=== PATIENT | female | born 1990 | race Caucasian/White ===

== ENCOUNTER 2022-07-21 14:15 | Outpatient (CLI) | payer OTHER, SELFPAY ==
[2022-07-21 16:50] LABS: Hepatitis B Surface Antigen* Negative (Negative)
[2022-07-21 17:44] LABS: HIV 1/2/P24 Combo Screen* Negative (Negative); Hepatitis C Virus Antibody* Negative (Negative)
[2022-07-21 19:23] LABS: Chlamydia DNA Amplified* NOT DETECTED (No Detected); GC DNA Amplified* NOT DETECTED (No Detected)
[2022-07-23 16:10] LABS: Rapid Plasma Reagin (RPR) Non Reactive (Non Reactive)
[2022-07-23 20:56] LABS: Varicella-Zoster Virus Ab, IgG 75.7 IV
[2022-07-23 20:59] LABS: Rubella Antibody IgG 24.9 IU/mL
== END 2022-07-21 14:16 | disposition home or self-care (01) ==
PROVIDERS: PCP Physician Assistant; Visit Provider Physician Assistant
DX: Z34.91 Encounter for supervision of normal pregnancy, unspecified, first trimester (principal); Z3A.10 10 weeks gestation of pregnancy
CPT/HCPCS: 76817; 86592; 86703; 86762; 86787; 86803; 86850; 86900; 86901; 87086; 87340; 87491; 87591

== ENCOUNTER 2022-08-15 09:25 | Emergency (ER) | payer OTHER, SELFPAY ==
[2022-08-15 09:41] VITALS: BP 103/72; PULSE 98; RESP 16; TEMP 36.9; O2SAT 98; BMI 25.7
--- NOTE | 2022-08-15 10:35 | ED.NURSE ---
dr chawla had done a poc u/s had large amt of urine in bladder. #16 fr ramirez was inserted and had egress of 1000 ml of straw colored urine. had immediate relief.
--- NOTE | 2022-08-15 10:43 | ED_ITS ---
HPI - Female Genitourinary General Date Seen: 08/15/22 Chief complaint: Urogenital Problems, Female Stated complaint: 14 weeks can't urinate Time Seen by Provider: 08/15/22 10:37 Source: patient Mode of arrival: ambulatory Limitations: no limitations History of Present Illness HPI Narrative: Patient is a 32-year-old at 14 weeks gestation, presents here with the acute inability to urinate, she said she had this with her last , and had to have a catheter placed for 5 days, leading up to this she had no problems with peeing, denies any dysuria frequency abdominal pain fevers chills or sweats, she did not take any cold medications or any other new medications that may have caused this other than 1 dose of Tylenol. has otherwise been uncomplicated, she has had ultrasound in this . No history of a vaginal bleeding, Related Data Home Medications Medication Instructions Recorded Confirmed calcium carbonate 500 mg calcium 500 mg PO BID 07/21/22 07/21/22 (1,250 mg) chewable tablet (Calcium 500) cholecalciferol (vitamin D3) 50 50 mcg PO BID 07/21/22 07/21/22 mcg (2,000 unit) capsule prenat.vits,erin,nie-pxre-iuznb 1 tab PO QDAY 07/21/22 07/21/22 Allergies Allergy/AdvReac Type Severity Reaction Status Date / Time No Known Allergies Allergy Unknown Unverified 07/21/22 13:32 Review of Systems Status of ROS: Reports: 6 or more systems reviewed and unremarkable except as noted in History and below PFSH PFS Medical History Normal spontaneous vaginal delivery Retention of urine Surgical History History of ear surgery Social History Narrative: Rqtd-cs-[id number] mom. Single. Nonsmoker. Smoking Status: Former smoker Do you use any of these nicotine containing products: None Second hand tobacco smoke exposure: No How often do you have a drink containing alcohol: never How often do you have six or more drinks on one occasion: Never AUDIT-C Alcohol total score: 0 Non-prescribed substance use: denies use Little interest or pleasure in doing things: not at all Feeling down, depressed, or hopeless: not at all service: No Exam Narrative: Exam Narrative: Patient is seen in room 4 she is in no apparent distress, pleasant gout, she appears to have a full bladder on palpation of her abdomen, almost up to the umbilicus, with some discomfort but no real pain. Ultrasound is used which shows a large amount of urine probably greater than 500 mL, Rodriguez is noted within her uterus. Const: Vital Signs, click to edit/add: Vital Signs - 24 hr 08/15/22 09:41 Temperature 98.4 F Pulse Rate [Pulse Oximeter] 98 Respiratory Rate 16 Blood Pressure [Ri ght Upper Arm] 103/72 Pulse Oximetry 98 Oxygen Delivery Me thod Room Air Course Vital Signs Vital signs: Initial Vital Signs Temperature 98.4 F 08/15/22 09:41 Temperature Source Axillary 08/15/22 09:41 Pulse Rate 98 08/15/22 09:41 Pulse Rhythm 08/15/22 09:41 Respiratory Rate 16 08/15/22 09:41 Blood Pressure 103/72 08/15/22 09:41 Blood Pressure Mean 82 08/15/22 09:41 Blood Pressure Position Sitting 08/15/22 09:41 Pulse Oximetry 98 08/15/22 09:41 Oxygen Delivery Method 08/15/22 09:41 Vital Signs Temperature 98.4 F 08/15/22 09:41 Pulse Rate 98 08/15/22 09:41 Respiratory Rate 16 08/15/22 09:41 Blood Pressure 103/72 08/15/22 09:41 Pulse Oximetry 98 08/15/22 09:41 Oxygen Delivery Method 08/15/22 09:41 Temperature 98.4 F 08/15/22 09:41 Pulse Rate 98 08/15/22 09:41 Respiratory Rate 16 08/15/22 09:41 Blood Pressure 103/72 08/15/22 09:41 Pulse Oximetry 98 08/15/22 09:41 Oxygen Delivery Method 08/15/22 09:41 MDM - Female Genitourinary MDM Narrative Medical decision making narrative: Multiple causes of her urinary retention are thought about including , a UTI, taking cold medications. Bottom line is she needs a catheter at this point, we will also check a UA. Medical Records Attestation: I reviewed the patient's medical records. Lab Data Attestation: I reviewed the patient's lab results. Labs: Lab Results 08/15/22 Range/Units 11:05 Urine Color Light yellow (Yellow) Urine Appearance Slightly Cloudy A (Clear) Urine pH 6.0 (5.0-8.5) Ur Specific [place] 1.020 (1.000-1.030) Urine Protein Negative (Negative) Urine Glucose (UA) Negative (Negative) Urine Ketones 4+ A (Negative) Urine Blood Trace-intact A (Negative) Urine Nitrite Negative (Negative) Urine Bilirubin Negative (Negative) Urine Urobilinogen 0.2 (0.2-1.0) Ur Leukocyte Esterase Negative (Negative) Urine RBC 2-5 A (0-2) Urine WBC 0-2 (0-5) Ur Squamous Epith Cells Few (None-Few) Urine Bacteria None (None) Discharge Plan Discharge Clinical Impression: 14 weeks gestation of , Acute urinary retention Patient Disposition: Home, Self-Care Condition: Improved Instructions: Desai Catheter Placement and Care (ED), Acute Urinary Retention in Women (ED), at 11 to 14 Weeks (ED), How to Change a Catheter Drainage Bag (DC) Additional Instructions: Home rest follow-up mid next week with primary care for catheter removal, return here if any issues around this. Continue to drink lots of fluids (you had a lot of ketones which makes me think you are not), fevers chills sweats or vaginal bleeding should prompt a return emergency room visit. Prescriptions: No Action prenat.vits,erin,uus-udir-ptlwy Tablet 1 tab PO QDAY calcium carbonate [Calcium 500] 500 mg calcium (1,250 mg) tablet,chewable 500 mg PO BID cholecalciferol (vitamin D3) 50 mcg (2,000 unit) capsule 50 mcg PO BID Follow Up/Referrals: Bessie Reyes PA-C [Physician [employer] Engineer] - Stand Alone Forms: [employer] [facility] Info Instructions
[2022-08-15 11:14] LABS: Appearance Urine Slightly Cloudy (Clear); Bilirubin Urine Negative (Negative); Blood Urine Trace-intact (Negative); Color Urine Light yellow (Yellow); Glucose Urine Negative (Negative); Ketones Urine 4+ (Negative); Leukocyte Esterase Urine Negative (Negative); Nitrite Urine Negative (Negative); Protein Urine Negative (Negative); Urobilinogen Urine 0.2 (0.2-1.0)
[2022-08-15 11:23] LABS: Squamous Epithelial Cell Urine Few (None-Few); WBC Urine 0-2 (0-5)
[2022-08-15 11:47] VITALS: BP 95/57; PULSE 64; RESP 18; O2SAT 97
--- NOTE | 2022-08-15 12:00 | ED.NURSE ---
was able to use leg bad in the past. did give her the larger overnight bag. has had ramirez catheter in the past and was instructed on the use and emptying of the drainage bag. has no further questions and wants to go home.
== END 2022-08-15 12:05 | disposition home or self-care (01) ==
LOC: ED 11:10
PROVIDERS: Emergency Provider Family Medicine; PCP Obstetrics & Gynecology
DX: O26.891 Other specified pregnancy related conditions, first trimester (principal); R33.9 Retention of urine, unspecified; Z3A.14 14 weeks gestation of pregnancy
CPT/HCPCS: 51702; 81001; 99283

== ENCOUNTER 2022-09-24 12:48 | Outpatient (CLI) | payer OTHER, SELFPAY ==
--- NOTE | 2022-09-24 13:00 | CRLHL7_ITS ---
For Patients: As a result of the Century Cures Act, medical imaging exams and procedure reports are released immediately into your electronic medical record. You may view this report before your referring provider. If you have questions, please contact your health care provider. INDICATION: Evaluate anatomy. COMPARISON: .3 TECHNIQUE: Real time macias scale imaging of the fetus was performed as well as color Doppler analysis of the umbilical vessels. FINDINGS: Sonographic imaging demonstrates a single living intrauterine gestation. Fetus demonstrates a regular cardiac rate of 132 beats per minute. Fetus has a variable position. The placenta lies posteriorly without evidence of placenta previa. The edge of the placenta is located 6.9 cm from the internal cervical os. Amniotic fluid volume appears normal. Single deepest vertical pocket: 4.5 cm. The cervix is closed and measures 5.4 cm in length. The composite ultrasound gestational age is calculated at 19 weeks 2 days with an estimated sonographic due date of 02/16/2023. The estimated weight is 298 grams which lies at the 28th %. The following biometric measurements were obtained: Biparietal diameter: 4.2 cm/18 weeks 5 days 10th% Head circumference: 15.9 cm/18 weeks 5 days 5th% Abdominal circumference: 15.2 cm/20 weeks 3 days 62nd% Femur length: 2.9 cm/18 weeks 6 days 12th% The HC/AC ratio measures: 1.05 range (1.09-1.26) On anatomic survey, there is a normal appearance of the cerebral ventricles, cavum septi pellucidi, cisterna magna and cerebellum. The nose, lips, and facial profile appear normal. The cervical, thoracic and lumbar spine are well visualized and appear normal. There is a normal four-chamber heart view and the left and right ventricular outflow tracts appear normal. The diaphragm and stomach appear normal. The kidneys and bladder also appear normal. There is a normal three-vessel cord and cord insertion site. The four extremities appear normal. IMPRESSION: Normal OB ultrasound exam with concordance of clinical and sonographic dating. No intrinsic abnormalities noted on anatomic survey. Dictated by Shimon Castaneda MD @ 09/25/2022 11:58:42 AM (Electronically Signed)
== END 2022-09-24 12:49 | disposition home or self-care (01) ==
LOC: US 12:49
PROVIDERS: PCP Family Medicine; Visit Provider Obstetrics & Gynecology
DX: Z34.92 Encounter for supervision of normal pregnancy, unspecified, second trimester (principal); Z3A.18 18 weeks gestation of pregnancy
CPT/HCPCS: 76805

== ENCOUNTER 2023-01-21 12:24 | Outpatient (CLI) | payer OTHER, SELFPAY | END 2023-01-21 12:25 | disposition home or self-care (01) | LOC: NFLDREF 01-24 06:16 | PROVIDERS: PCP Family Medicine; Referring Provider Family Medicine; Visit Provider Obstetrics & Gynecology | DX: Z36.85 Encounter for antenatal screening for Streptococcus B (principal); Z3A.36 36 weeks gestation of pregnancy | CPT/HCPCS: 87081; 87653 ==

== ENCOUNTER 2023-02-17 07:01 | Inpatient (IN) | payer OTHER, SELFPAY ==
[2023-02-17] VITALS (25 sets, daily range): BP systolic 107–132; BP diastolic 56–88; PULSE 52–79; RESP 16; TEMP 36.8–37.2; O2SAT 92–100; BMI 27.8
[2023-02-17] MEDS: miSOPROStoL 25 MCG/0.25 TABLET VAGINAL (08:20)
--- NOTE | 2023-02-17 09:09 | P.LDBA_ITS ---
Subjective History of Present Illness Time Seen by Provider: 08:00 Date Seen: 02/17/23 Narrative: Patient is being admitted to Labor and Delivery for elective induction of labor. She is a 32 year old at 40 5/7 weeks gestation. Her full history and physical was dictated by Dr. Figueredo on 01/28/2023. Please see this for details. She had a vasovagal response to her attempted IV start just prior to my arrival to the Center. Partner/FOB: Emir Dixon. Son: Khadar. Daughter: Sarah. Baby: Almaz or Kylie 1. Varicella nonimmune * Vaccination 2. 08/15/2022: Acute urinary retention at 13w5d: ramirez placed in the ED. Ucx: <50,000cfu/ml lactobacillus. * Occurred in her 2nd on 06/06/19 (14w2d) treated for a UTI and ramirez placed but UCx showed no growth. * Occurred in this on 08/15/22. Successful Trial of Void on 08/20/22 Flu shot: 07/21/2022 COVID: Due for booster Tdap: 12/07/2022 OB - Problem Based A/P Additional Plan (1) Encounter for induction of labor: Status: Acute Delivery/Labor/Induction Plan Plan: induction Induction method: per misoprostol protocol OB Exam Physical Exam Vital signs: Temp Pulse BP Pulse Ox 98.3 F 53 L 107/65 98 02/17/23 07:27 02/17/23 07:29 02/17/23 07:29 02/17/23 07:27 Detailed Labor and Delivery Exam Patient Gravid: Yes Dilation (cm): 1 Effacement (%): 50 Fetus (Single) Station: -2 Heart Rate Baseline: 135 Monitor Accelerations: Present Monitor Decelerations: None Caf[employer]ia Server Variability: Moderate (6-25)
--- NOTE | 2023-02-17 10:19 | PM.OBPNL ---
Subjective Time Seen by Provider: 10:19 Date Seen: 02/17/23 Narrative: Feeling crampy following cytotec administration. Objective Vital Signs: Last Vital Signs Temp 98.3 F 02/17/23 07:27 Pulse 53 L 02/17/23 07:29 BP 107/65 02/17/23 07:29 Pulse Ox 98 02/17/23 07:27 Pelvic Exam Dilation (cm): 2 Effacement (%): 50 Station: -2 Comments: posterior, soft Contractions Monitor mode: External Contraction pattern: Irregular Contraction intensity: Mild Assessment Assessment: induction ongoing Station: -2 Status: Category l Heart Rate Baseline: 140 Monitor Accelerations: Present Monitor Decelerations: None Plan Plan: Switch induction method to IV pitocin.
[2023-02-17] MEDS: LACTATED RINGERS 1000 ML 1,000 ML 125 ML IV (12:04)
[2023-02-17] MEDS: OXYTOCIN 30 unit/500 ML in NS 30 UNIT/500 ML BAG IVPB (12:10)
[2023-02-17] MEDS: ROPIVACAINE 0.2% 100 ml 100 ML 12 MG EPIDURAL (13:41)
[2023-02-17] MEDS: LACTATED RINGERS 1000 ML 1,000 ML 1125 ML IV (14:00)
--- NOTE | 2023-02-17 15:19 | PM.ANBPRC ---
[facility] Medical History (Updated 02/17/23 @ 09:14 by Alma Townsend MD) Lipoma of right shoulder ?D17.21 - Benign lipomatous neoplasm of skin and subcutaneous tissue of right arm (ICD-10) Retention of urine ?R33.9 - Retention of urine, unspecified (ICD-10) Normal spontaneous vaginal delivery ?O80 - Encounter for full-term uncomplicated delivery (ICD-10) Surgical History (Updated 01/28/23 @ 14:07 by Ally Figueredo MD) S/P excision of lipoma ?Z98.890 - Other specified postprocedural states (ICD-10) ?Z86.018 - Personal history of other benign neoplasm (ICD-10) History of ear surgery ?Z98.890 - Other specified postprocedural states (ICD-10) Family History (Updated 01/28/23 @ 14:08 by Ally Figueredo MD) Other Bone cancer Breast cancer Diabetes High blood pressure Lung cancer Prostate cancer Social History (Updated 01/28/23 @ 14:09 by Ally Figueredo MD) Narrative: Lives in [place] Hqdy-ld-xlod mom. Single. Nonsmoker. What is your current living situation?: I presently have a place to live Problems where you live: no known problems In the past 12 months, utilities in danger of being shut off: no In the past 12 mos, have been you worried that your food would run out before you had money to buy more?: never true In the past 12 mos, the food you bought just didn't last and you didn't have money to buy more?: never true Smoking Status: Former smoker Do you use any of these nicotine containing products: None Second hand tobacco smoke exposure: No How often do you have a drink containing alcohol: never How often do you have six or more drinks on one occasion: Never AUDIT-C Alcohol total score: 0 Non-prescribed substance use: denies use How often does anyone, including family, friends and others, physically hurt you: never How often does anyone, including family, friends and others, insult or talk down to you: never How often does anyone, including family, friends and others, threaten you with harm: never How often does anyone, including family, friends and others, scream or curse at you: never Little interest or pleasure in doing things: not at all Feeling down, depressed, or hopeless: not at all service: No Meds Home Medications and Allergies Home Medications Medication Instructions Recorded Confirmed Type cholecalciferol (vitamin D3) 50 50 mcg PO BID 07/21/22 02/17/23 History mcg (2,000 unit) capsule prenat.vits,erin,lvm-tdci-cxxgl 1 tab PO QDAY 07/21/22 02/17/23 History acetaminophen 500 mg tablet 1,000 mg PO QID PRN 08/20/22 02/17/23 History (Tylenol Extra Strength) Allergies Allergy/AdvReac Type Severity Reaction Status Date / Time No Known Allergies Allergy Unknown Verified 02/11/23 14:23 Results Vital Signs Vital Signs: Last Vital Signs Temp 98.6 F 02/17/23 12:57 Pulse 62 02/17/23 15:16 BP 124/66 02/17/23 15:16 Pulse Ox 100 02/17/23 13:35 Weight: 73.482 kg Height: 162.56 cm Anesthesia Procedures Epidural Insertion Patient Location: OB Start Time: 13:30 Stop Time: 14:00 Start Date: 02/17/23 Stop Date: 02/17/23 Reason for Block: procedure for pain Patient Position: sitting Performed By: Renee Freeman Preanesthetic Checklist: IV checked, risks and benefits discussed, monitors and equipment checked, timeout performed and anesthesia consent Prep: chlorhexidine gluconate Monitoring: blood pressure monitoring, continuous pulse oximetry and heart rate Approach: midline Vertebral Space: lumbar (1-5) Epidural Technique: ESTHER saline Needle Type: Tuohy needle Injection Technique: continuous catheter Needle gauge: 17 Needle Length (cm): 10 cm Needle Insertion Depth (cm): 7 Catheter Gauge: 19 Catheter Type: multi-orifice Catheter at skin depth (cm): 13 Test Dose Result: negative and lidocaine 1.5% with epinephrine 1 to 200,000
--- NOTE | 2023-02-17 16:00 | W.PM.OBVAGDE ---
OB Procedure Vag Delivery Mother Details Mother Details: The patient is a 32 year-old, 4, Para 2011, admitted on 02/17/23 at 40 5/7 weeks gestation for elective induction of labor. Cervix was slightly unfavorable at the time of admission. She received one dose vaginal misoprostol 25 mcg at 0820. Pitocin infusion was initiated at 1220. : 4 Para: 2 Weeks Gestation: 40.5 Admission Date: 02/17/23 Additional Details Amniotic Membrane Status: SROM Amniotic Membrane Rupture Date: 02/17/23 Amniotic Membrane Rupture Time: 14:06 Amniotic Membrane Fluid Description: Clear Analgesia/Anesthesia Type: Epidural (at 1330) Waterbirth: No Pitcoin: Yes Intrapartal Events: Labor Induction Induction Method: per misoprostol protocol and per pitocin protocol Labor Onset: 12:00 Complete: 14:06 Pushin:07 Heart: heart tones during second stage were 130s baseline with variable decelerations, category 2. Delivery Details Delivery Date: 02/17/23 Delivery Time: 14:10 Route of delivery: Infant Gender: Female Viability: Alive; Heart Rate Present Position at Delivery: OA Delivery Details: Delivered over intact perineum via spontaneous vaginal delivery. was placed on maternal abdomen.? Cord was clamped and cut onthe perineum due to tight nuchal cord. Nose and mouth were bulb suctioned.? Infant weight 6 pounds 8 ounces. 1 Minute Interval Total Score: 8 5 Minute Interval Total Score: 8 Additional Details Shoulder Dystocia: No Placenta Delivery Time: 14:15 Placental Delivery Description: Spontaneous (Appeared intact, chorion and amnion not fused together (2 separate membrane layers)) Procedure Done: Global Blood Loss: 100 Laceration: None Episiotomy Description: None Blood Loss Measurement Type: QBL Bakri Used: No Sponge/Need Count Correct: Yes Cord Vessel Description: 3 Vessels, Nuchal Cord and Tight Event Summary Status: Mother and were stable after delivery. Disposition: floor
[2023-02-18 00:30] VITALS: BP 119/78; PULSE 58; RESP 16; TEMP 37.1; O2SAT 95
[2023-02-18] MEDS: IBUPROFEN 600 MG TABLET PO (00:52)
[2023-02-18 05:15] VITALS: BP 118/68; PULSE 53; RESP 16; TEMP 36.8; O2SAT 95
[2023-02-18 06:50] LABS: Hemoglobin* 10.5 gm/dL (12.0-16.0)
--- NOTE | 2023-02-18 07:13 | P.DS_ITS ---
DS: Providers Provider Time Seen by Provider: 07:13 Date Seen: 02/18/23 Date of admission: 02/17/23 07:01 Primary care physician: Shimon Pettit MD Admitting Clinician: Alma Townsend MD Attending Physician on discharge: Alma Townsend MD Date of Discharge: 02/18/23 DS: Diagnosis Discharge Diagnosis (1) NVD (normal vaginal delivery): Status: Acute Exam Narrative: Exam Narrative: VSS, afebrile GENERAL APPEARANCE: ?normal affect, alert, no distress MOOD: ?appropriate HEENT: normocephalic, neck supple, full ROM CHEST: ?Symmetrical chest wall movement. ?Normal respiratory effort. ?Clear to auscultation HEART: ?regular rate and rhythm ABDOMEN: ?soft, non-tender. Uterine fundus is firm, 2 below Umbilicus, Midline and is appropriate for the stage of recovery. ?Bowel sounds present. PERINEUM: ?[mild] edema of the perineum, there is no lacerations EXTREMITIES: ?normal and no edema Const: Vital Signs, click to edit/add: Vital Signs - 24 hr 02/17/23 07:27 02/17/23 07:27 02/17/23 07:29 Temperature 98.3 F Pulse Rate 53 L Pulse Rate [Pulse Oximeter] Respiratory Rate Blood Pressure 107/65 Blood Pressure [Le ft Arm] Pulse Oximetry 98 [facility] 02/[facility] 12:07 02/17/23 12:07 02/17/23 12:57 Temperature 98.2 F Pulse Rate 57 L 52 L Pulse Rate [Pulse Oximeter] Respiratory Rate Blood Pressure 126/77 125/74 Blood Pressure [Le ft Arm] Pulse Oximetry Oxygen Delivery [facility] 02/17/23 12:57 02/17/23 13:29 02/17/23 13:30 Temperature 98.6 F Pulse Rate 65 Pulse Rate [Pulse Oximeter] Respiratory Rate Blood Pressure 132/88 Blood Pressure [Le ft Arm] Pulse Oximetry 100 [facility] 02/17/23 13:33 02/17/23 13:35 02/17/23 13:37 Temperature Pulse Rate 63 75 79 Pulse Rate [Pulse Oximeter] Respiratory Rate Blood Pressure 124/76 127/81 132/72 Blood Pressure [Le ft Arm] Pulse Oximetry 92 100 Oxygen Delivery [facility] 02/17/23 13:39 02/17/23 13:41 02/17/23 13:43 Temperature Pulse Rate 73 69 59 L Pulse Rate [Pulse Oximeter] Respiratory Rate Blood Pressure 130/67 118/56 L 113/56 L Blood Pressure [Le ft Arm] Pulse Oximetry [facility] 02/17/23 13:49 02/17/23 13:55 02/17/23 14:00 Temperature Pulse Rate 65 71 71 Pulse Rate [Pulse Oximeter] Respiratory Rate Blood Pressure 119/66 118/69 107/59 L Blood Pressure [Le ft Arm] Pulse Oximetry [facility] 02/17/23 14:16 02/17/23 14:31 02/17/23 14:46 Temperature Pulse Rate 71 58 L 54 L Pulse Rate [Pulse Oximeter] Respiratory Rate Blood Pressure 110/77 107/68 108/66 Blood Pressure [Le ft Arm] Pulse Oximetry [facility] 02/17/23 15:01 02/17/23 15:15 02/17/23 15:16 Temperature 98.6 F Pulse Rate 64 62 Pulse Rate [Pulse Oximeter] Respiratory Rate 16 Blood Pressure 114/68 124/66 Blood Pressure [Le ft Arm] Pulse Oximetry [facility] 02/17/23 15:31 02/17/23 15:46 02/17/23 16:01 Temperature Pulse Rate 57 L 67 55 L Pulse Rate [Pulse Oximeter] Respiratory Rate Blood Pressure 116/63 116/64 110/58 L Blood Pressure [Le ft Arm] Pulse Oximetry [facility] 02/17/23 19:18 02/18/23 00:30 02/18/23 05:15 Temperature 98.9 F 98.8 F 98.3 F Pulse Rate Pulse Rate [Pulse Oximeter] 57 L 58 L 53 L Respiratory Rate 16 16 16 Blood Pressure Blood Pressure [Le ft Arm] 114/72 119/78 118/68 Pulse Oximetry 97 95 95 [facility] Room Air Room Air Room Air Documenting provider has reviewed patient's vital signs: yes OB - DS: Summary Hospital Course Hospital Course: Blanca is a 32 y.o. G 4 P 3 who was admitted to [facility] for IOL. ?She had an uncomplicated NVD The patient feels well. ?The pain is well controlled with current medications. ?She has no new complaints. ?She is bottle feeding without complication. the patient has done well.? Vitals have been stable.? She has remained afebrile.? Has a good appetite, is tolerating a general diet. ?She is voiding without difficulty.? She is passing gas and has had a bowel movement.? She is ambulating and denies any dizziness.? Has Small amount of rubra lochia. She is planning partner vasectomy for prevention. Problems: none plan: Discharge home with baby. Follow up in 2 weeks and 6 weeks. Peripartum Data Infant delivery method: Vaginal Laceration description: None complications: none [place] Gender: Female Discharge Plan: Home Status at Discharge Functional status at discharge: independent ambulation Overall status at discharge: patient is progressing back to baseline Time Spent with Patient Time attestation: Total time spent providing and/or coordinating discharge services: Time spent: Less than 30 minutes Discharge Plan Discharge Disposition: Home, Self-Care Date of Admission: 02/17/23 07:01 Attending Provider on Discharge: Dorothy Matthew Primary Care Provider: Shimon Pettit Condition: Stable Anticipated Discharge Date/Time: 02/18/23 16:00 Discharge Medications: New docusate sodium 100 mg Capsule 100 mg PO BID PRNQty: 100 0RF Rx Instructions: Take 1 cap 1-2 times a day as needed for constipation ibuprofen 600 mg Tablet 600 mg PO Q6H PRNQty: 60 0RF Continued prenat.vits,erin,jqp-zuqy-bmfgt Tablet 1 tab PO QDAY cholecalciferol (vitamin D3) 50 mcg (2,000 unit) capsule 50 mcg PO BID acetaminophen [Tylenol Extra Strength] 500 mg tablet 1,000 mg PO QID PRN Discharge Orders: Discharge Order (Routine); Ordered 02/18/23 Ordered By: Dorothy Matthew Patient Education: OB Over the Counter Medication Information, OB Vaginal/Bottle Feeding Additional Instructions: Follow up in 2 weeks and 6 weeks. Activity Level: Activity as Tolerated Discharge Diet: Regular Follow Up Appointments: Shimon Pettit MD [Primary Care Provider] - Forms: [employer] Info Instructions
[2023-02-18 08:30] VITALS: BP 108/69; PULSE 54; RESP 16; TEMP 36.7; O2SAT 95
[2023-02-18 12:30] VITALS: BP 111/73; PULSE 63; RESP 16; TEMP 36.6; O2SAT 96
== END 2023-02-18 15:43 | disposition home or self-care (01) | DRG 807 ==
PROVIDERS: Admitting Provider Obstetrics & Gynecology; PCP Family Medicine; Visit Provider Obstetrics & Gynecology
DX: O48.0 Post-term pregnancy (principal); Z37.0 Single live birth; Z3A.40 40 weeks gestation of pregnancy
CPT/HCPCS: 01967; 36415; 59200; 85018; 88307; A9270; J2371; J2795; J7120; S0020